=== PATIENT | male | born 1985 | race Hispanic/Latino ===

== ENCOUNTER 2021-09-10 09:03 | Day surgery (SDC) | payer BC ==
[2021-09-08 13:15] VITALS: BP 127/83
[~2021-09-10] VITALS: Ht 170.2 cm; Wt 72.6 kg
[2021-09-10] VITALS (19 sets, daily range): BP systolic 120–145; BP diastolic 64–89
[2021-09-10] MEDS ORDERED: CEFAZOLIN SODIUM 1 GM VIAL ONE (09:53)
[2021-09-10] MEDS ORDERED: LACTATED RINGERS 1000ML 1,000 ML IV ONE (09:53)
[2021-09-10] MEDS ORDERED: PROPOFOL 10 MG/ML 20ML VIAL IV ONE (12:30)
[2021-09-10] MEDS ORDERED: DEXAMETHASONE SOD PHOSPHATE 10MG/ML 1ML VIAL ONE (12:30)
[2021-09-10] MEDS ORDERED: SUCCINYLCHOLINE CHLORIDE 20 MG/ML 10 ML VIAL ONE (12:30)
[2021-09-10] MEDS ORDERED: LIDOCAINE PF 100MG/5ML (2%) SYRINGE 5ML ONE (12:30)
[2021-09-10] MEDS ORDERED: MIDAZOLAM HCL 1 MG/ML 2ML VIAL ONE (12:31)
[2021-09-10] MEDS ORDERED: GLYCOPYRROLATE 1 MG/5 ML SYRINGE ONE (12:31)
[2021-09-10] MEDS ORDERED: FENTANYL CITRATE PF 50 MCG/1 ML 2ML VIAL ONE ×2 (12:31→13:07)
[2021-09-10] MEDS ORDERED: NEOSTIGMINE 5MG/5ML SYR IV ONE (12:31)
[2021-09-10] MEDS ORDERED: ONDANSETRON 4MG INJ ONE (12:31)
[2021-09-10] MEDS ORDERED: CEFAZOLIN SODIUM 2 GM VIAL IV ONE (12:58)
[2021-09-10] MEDS ORDERED: BUPIVACAINE/PF 0.25% 30ML VIAL IJ ONE (13:11)
[2021-09-10] MEDS ORDERED: BACITRACIN 28.4 GM OINT TP ONE (14:27)
[2021-09-10] MEDS ORDERED: MEPERIDINE-PF 25 MG/ML SYG ONE (14:54)
== END 2021-09-10 17:19 | disposition home or self-care (01) ==
LOC: DAH 09:03 → EDSEX 09:15 → DAH 17:19
PROVIDERS: ATTEND Urology
DX: Z30.2 Encounter for sterilization (principal); N47.1 Phimosis; Z20.822 Contact with and (suspected) exposure to COVID-19; Z98.890 Other specified postprocedural states
CPT/HCPCS: 54161; 55250; 87635; A4215; A4221; A4222; A4223; A4510; A4663; C9803; J0330; J0690 ×2; J1100; J2001; J2175; J2250; J2405; J2704; J2710; J3010 ×2; J3490 ×2; J7120